=== PATIENT | male | born 1955 | race Caucasian/White ===

== ENCOUNTER 2019-05-16 17:13 | Emergency (ER) | payer MEDICARE, BC, OTHER ==
--- NOTE | 2019-05-16 17:30 | ERPHSYRPT ---
- History of Present Illness Time Seen by Provider: 05/16/19 17:19 - Departure Referrals: ARYAN CHAVARRIA MD [Primary Care Provider] -
[2019-05-16] MEDS ORDERED: BABY ASPIRIN 81 MG CHEW PO ONE (17:33)
[2019-05-16] MEDS ORDERED: NITRO-BID 2% UD PACKETS TOP ONE (17:33)
[2019-05-16 17:48] LABS: Absolute Neutrophil Ct (ANC) 7.74 (1.4-6.9); BASOPHIL % 0.5 % (0.0-0.4); Basophil (Absolute #) 0.05 (0-0.4); Eosinophil % 1.4 % (0.00-5.0); Eosinophil (Absolute #) 0.16 (0-0.5); Hematocrit 29.8 % (42-50); Lymphocyte (Absolute #) 1.49 (1.0-4.6); Lymphocytes % 13.5 % (24.0-44.0); Mean Cell Volume 77.6 fl (78-100); Mean Corpuscular Hgb Concent. 33.6 g/dl (32-36); Mean Platelet Volume 9.3 fl (6-9.5); Monocyte (Absolute #) 1.62 (0.0-1.3); Monocytes % 14.6 % (0.0-12.0); Platelet Count 376 K/mm3 (150-450); Red Blood Count 3.84 M/mm3 (4.1-5.6); Red Cell Distribution Width 15.6 % (11.5-14.0); White Blood Count 11.1 K/mm3 (4.0-10.5)
[2019-05-16] MEDS ORDERED: BABY ASPIRIN 81 MG CHEW ONE (18:22)
[2019-05-16] MEDS ORDERED: NITRO-BID 2% UD PACKETS ONE ×2 (18:22→18:27)
[2019-05-16 18:24] LABS: Glucose 146 mg/dL (74-106)
[2019-05-16 18:25] LABS: ALKALINE PHOSPHATASE 80 U/L (38-126); BLOOD UREA NITROGEN 9 mg/dL (9-20); CHLORIDE 83 mmol/L (98-107); CK-Creatinine Phosphokinase 35 U/L (55-170); Calcium 8.8 mg/dL (8.4-10.2); Carbon Dioxide 26 mmol/L (22-30); Creatinine 1 0.45 mg/dL (0.66-1.25); NT PRO BNP 1620 pg/mL (0-900); Potassium 4.8 mmol/L (3.5-5.1); SGOT/AST 31 U/L (17-59); SGPT/ALT 29 U/L (0-50); SODIUM 121 mmol/L (137-145); Total Protein 7.5 g/dL (6.3-8.2)
[2019-05-16 18:26] LABS: ANION GAP 1.1 MEQ/L (5-15)
--- NOTE | 2019-05-16 19:00 | ERPHSYRPT ---
- History of Present Illness Time Seen by Provider: 05/16/19 17:19 Historian: patient Exam Limitations: no limitations Patient Subjective Stated Complaint: pt here for sob for 3 days worse this morning Triage Nursing Assessment: pt to ED c/o SOB and CP intermittently x2 months. 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 laying flat makes SOB and CP wrose. pain radiates from substernal to L shoulder and to lower back. pt on room air. wheelchair to room, placed in gown and placed in bed. observed shallow breaths. lung sounds clear and equal bilat. heart sounds clear. cap refil < 2 sec. no clubbing noted. Physician History: patient c/o SOB, increasing weakness, increasing peripheral edema x 3 days, worse today - Also c/o left sided chest pain- 09/01, constant, no aggravating or relieving factors, radiating to left arm x 3 days - reports he has had an open heart surgery and a pacemaker in place - also reports he has been treated for a UTI 3 weeks ago and is undergoing rx for glaucoma - pt. sees physicians out of [facility] Timing/Duration: day(s) (3) Activities at Onset: none Quality: dullness Location: substernal Chest Pain Radiation: arm Severity of Pain-Max: mild Modifying Factors: Improves With: nothing Associated Symptoms: shortness of breath, weakness Prior Chest Pain/Cardiac Workup: cardiac cath, echocardiography, heart attack Nitro Today/Relief: 0.4 mg x 1, provided by ED, mild relief Aspirin Treatment Today: no aspirin today, 81 mg x 3, provided by ED Allergies/Adverse Reactions: No Known Drug Allergies Allergy (Unverified 05/16/19 18:30) - Review of Systems Constitutional: Weakness Eyes: No Symptoms Ears, Nose, & Throat: No Symptoms Respiratory: Dyspnea, Dyspnea on Exertion (MACARIO) Cardiac: Chest Pain, Edema, Orthopnea Abdominal/Gastrointestinal: No Symptoms Genitourinary Symptoms: No Symptoms Musculoskeletal: No Symptoms Skin: No Symptoms Neurological: No Symptoms, No Dizziness, No Focal Weakness, No Gait Changes Psychological: No Symptoms Endocrine: No Symptoms Hematologic/Lymphatic: No Symptoms Immunological/Allergic: No Symptoms All Other Systems: Reviewed and Negative - Past Medical History Pertinent Past Medical History: Yes Neurological History: No Pertinent History ENT History: No Pertinent History Cardiac History: Congestive Heart Failure, High Cholesterol, Hypertension Respiratory History: Asthma, CHF Endocrine Medical History: Diabetes Type II Musculoskeletal History: No Pertinent History GI Medical History: No Pertinent History History: No Pertinent History Psycho-Social History: Anxiety Male Reproductive Disorders: No Pertinent History - Past Surgical History Past Surgical History: Yes Neuro Surgical History: No Pertinent History Cardiac: Cardiac Stent, Pacemaker, Other Respiratory: No Pertinent History Gastrointestinal: No Pertinent History Genitourinary: No Pertinent History Musculoskeletal: No Pertinent History Male Surgical History: No Pertinent History - Social History Smoking Status: Former smoker Exposure to second hand smoke: No Drug Use: none Patient Lives Alone: No - Nursing Vital Signs Nursing Vital Signs: Initial Vital Signs Temperature 97.0 F 05/16/19 17:18 Pulse Rate 79 05/16/19 17:18 Respiratory Rate 22 05/16/19 17:18 Blood Pressure 142/77 05/16/19 17:18 O2 Sat by Pulse Oximetry 96 05/16/19 17:18 Pain Scale Pain Intensity 4 - Physical Exam General Appearance: mild distress Eye Exam: PERRL/EOMI Ears, Nose, Throat Exam: normal ENT inspection, TMs normal, pharynx normal Neck Exam: normal inspection, non-tender, supple, full range of motion Respiratory Exam: normal breath sounds, diminished breath sounds, crackles/rales Cardiovascular Exam: regular rate/rhythm, normal heart sounds, normal peripheral pulses, edema Gastrointestinal/Abdomen Exam: soft Rectal Exam: deferred Back Exam: normal inspection Extremity Exam: pedal edema Neurologic Exam: alert, oriented x 3, cooperative, normal mood/affect Skin Exam: normal color Lymphatic Exam: No adenopathy SpO2 Interpretation: normal SpO2: 97 O2 Delivery: Room Air - Course EKG Interpreted by Me: RATE, Sinus Rhythm, NORMAL AXIS, ST Elev (ST elevation in 111, avr, v1, ; st depression in 1 avl- pt. states he ahs EKG abnormalities for a few years now), Non-specific ST Changes Ordered Tests: Active Orders 24 hr Category Date Time Status Sorting And Folding Supervisor STAT Care 05/16/19 17:31 Active EKG-ER Only STAT Care 05/16/19 17:30 Active CHEST 1 VIEW (PORTABLE) Stat Exams 05/16/19 17:31 Taken CBC W DIFF Stat Lab 05/16/19 17:30 Completed CK-Creatinine Phosphokinase Stat Lab 05/16/19 17:56 Completed CMP Stat Lab 05/16/19 17:56 Completed NT PRO BNP Stat Lab 05/16/19 17:56 Completed TROPONIN Q3H Lab 05/16/19 17:56 Completed TROPONIN Q3H Lab 05/16/19 20:45 Ordered TROPONIN Q3H Lab 05/16/19 23:45 Ordered TROPONIN Q3H Lab 05/17/19 02:45 Ordered TROPONIN Q3H Lab 05/17/19 05:45 Ordered Medication Summary Generic Name Dose Route Start Last Admin Trade Name Freq PRN Reason Stop Dose Admin Furosemide 20 mg 05/17/19 10:00 05/16/19 19:06 Lasix 20 Mg/2 Ml IV 06/16/19 09:59 20 mg DAILY CLEOPATRA Administration Discontinued Medications Generic Name Dose Route Start Last Admin Trade Name Freq PRN Reason Stop Dose Admin Aspirin 324 mg 05/16/19 17:33 05/16/19 19:11 Baby Aspirin 81 Mg Chew PO 05/16/19 17:34 324 mg STAT ONE Administration Aspirin Confirm 05/16/19 18:22 Baby Aspirin 81 Mg Chew Administered 05/16/19 18:23 Dose 324 mg .ROUTE .STK-MED ONE Furosemide Confirm 05/16/19 19:03 Lasix 40 Mg/4 Ml Administered 05/16/19 19:04 Dose 40 mg .ROUTE .STK-MED ONE Nitroglycerin 1 gm 05/16/19 17:33 05/16/19 19:11 Nitro-Bid 2% Ud Packets TOP 05/16/19 17:34 1 gm STAT ONE Administration Nitroglycerin Confirm 05/16/19 18:22 Nitro-Bid 2% Ud Packets Administered 05/16/19 18:23 Dose 1 gm .ROUTE .STK-MED ONE Nitroglycerin Confirm 05/16/19 18:27 Nitro-Bid 2% Ud Packets Administered 05/16/19 18:28 Dose 1 gm .ROUTE .STK-MED ONE Lab/Rad Data: Laboratory Result Diagrams 05/16/19 17:30 05/16/19 17:56 Laboratory Results 05/16/19 05/16/19 05/16/19 Range/Units 17:56 17:56 17:30 WBC 11.1 H (4.0-10.5) K/mm3 RBC 3.84 L (4.1-5.6) M/mm3 Hgb 10.0 L (12.5-18.0) gm/dl Hct 29.8 L (42-50) % MCV 77.6 L (78-100) fl MCH 26.0 (26-32) pg MCHC 33.6 (32-36) g/dl RDW 15.6 H (11.5-14.0) % Plt Count 376 (150-450) K/mm3 MPV 9.3 (6-9.5) fl Gran % 70.0 H (36.0-66.0) % Eos # (Auto) 0.16 (0-0.5) Absolute Lymphs (auto) 1.49 (1.0-4.6) Absolute Monos (auto) 1.62 H (0.0-1.3) Lymphocytes % 13.5 L (24.0-44.0) % Monocytes % 14.6 H (0.0-12.0) % Eosinophils % 1.4 (0.00-5.0) % Basophils % 0.5 (0.0-0.4) % Absolute Granulocytes 7.74 H (1.4-6.9) Basophils # 0.05 (0-0.4) Sodium 121 L (137-145) mmol/L Potassium 4.8 (3.5-5.1) mmol/L Chloride 83 L (98-107) mmol/L Carbon Dioxide 26 (22-30) mmol/L Anion Gap 1.1 L (5-15) MEQ/L BUN 9 (9-20) mg/dL Creatinine 0.45 L (0.66-1.25) mg/dL Estimated GFR > 60.0 ML/MIN Glucose 146 H (74-106) mg/dL Calcium 8.8 (8.4-10.2) mg/dL Total Bilirubin 0.60 (0.2-1.3) mg/dL AST 31 (17-59) U/L ALT 29 (0-50) U/L Alkaline Phosphatase 80 (38-126) U/L Creatine Kinase 35 L (55-170) U/L Troponin I < 0.012 (0.000-0.034) ng/mL NT-Pro-B Natriuret Pep 1620 H (0-900) pg/mL Serum Total Protein 7.5 (6.3-8.2) g/dL Albumin 4.0 (3.5-5.0) g/dL - Progress Progress: unchanged Air Movement: fair Progress Note: 05/16/19 19:06 Patient seen and examined in Ed room 7 - VSS - pt. was given 324 mg aspirin, nitro apste and IV lasix - Labs showed mildly elevated WBC count of 11.1, chronic anemia with Hb 10.0- per pt - CMP- shows hyponatremia with Na 121- this s chronic per patient, BNP 1620 CXR - WNL - CPK- WNL The medications offered little relief of chest pain Discussed with who recommended transfer to [facility] given pt's complicated cardiac history My nurse has called [facility] for transfer 05/16/19 19:44 discussed with at [facility]- who acccepted transfer and confirmed chronic hyponatremia an chronic EKG changes pt. will be transferred in stable condition Blood Culture(s) Obtained: No Antibiotics given: No - Departure Departure Disposition: Transfer Clinical Impression: Acute exacerbation of CHF (congestive heart failure), Chronic hyponatremia, Chest pain Condition: Fair Critical Care Time: Yes Critical Care Time(excluding separately billable procedures): Critical 30-74 mins (30 min) Referrals: ARYAN CHAVARRIA MD [Primary Care Provider] - Instructions: Heart Failure
[2019-05-16] MEDS ORDERED: Lasix 40 MG/4 ML ONE (19:03)
--- NOTE | 2019-05-16 20:55 | XRAY ---
Indication: Chest pain. Comparison: None Portable chest demonstrates cardiomegaly with CABG surgery, left sided AICD, central vascular prominence, and tiny left effusion concerning for cardiac decompensation. Superimposed pneumonia not completely excluded. Bony thorax intact with mild degenerative changes.
[2019-05-16 21:39] VITALS: BP 143/65; PULSE 83; O2SAT 93
[2019-05-17 05:38] LABS: Slide Review 1 YES
[2019-05-17] MEDS ORDERED: Lasix 20 MG/2 ML IV SCH (10:00)
== END 2019-05-16 21:50 | disposition short-term general hospital (02) ==
LOC: ED 17:13
DX: I50.9 Heart failure, unspecified (principal); E87.1 Hypo-osmolality and hyponatremia; R07.89 Other chest pain; R06.02 Shortness of breath; E78.00 Pure hypercholesterolemia, unspecified; I10 Essential (primary) hypertension; E11.9 Type 2 diabetes mellitus without complications
CPT/HCPCS: 36415; 71045; 80053; 82550; 83880; 84484; 85025; 93005; 93041; 96374; 99285; 99291; J1940; A9270-GY

== ENCOUNTER 2022-04-02 22:28 | Emergency (ER) | payer OTHER, MEDICARE ==
[2022-04-02] MEDS ORDERED: Lasix 40 MG/4 ML IV ONE (22:44)
--- NOTE | 2022-04-02 22:44 | ERPHSYRPT ---
- History of Present Illness Time Seen by Provider: 04/02/22 22:41 Historian: patient, family Exam Limitations: no limitations Physician History: pt has had CP for 3 days - has care at [facility] and came in here. Chronic COPD and SOBreath also. PVD and will need bypass and also states chronic CHF. No Trauma. Timing/Duration: day(s) Activities at Onset: none Quality: fullness, pressure, tightness Location: central Severity of Pain-Max: moderate Severity of Pain-Current: moderate Associated Symptoms: denies symptoms Prior Chest Pain/Cardiac Workup: angina, recently seen/treated Nitro Today/Relief: no nitro taken today (pain resolved prior to nitro) Aspirin Treatment Today: 81 mg x 4, provided at home, provided by ED Allergies/Adverse Reactions: iodine Allergy (Verified 04/02/22 22:38) Home Medications: Aspirin [Aspirin EC] 81 mg PO DAILY 04/02/22 [History] Atorvastatin Calcium [Lipitor] 80 mg PO DAILY 04/02/22 [History] Empagliflozin [Jardiance] 25 mg PO DAILY 04/02/22 [History] Ferrous Sulfate 324 mg PO DAILY 04/02/22 [History] Fluoxetine HCl 10 mg [Prozac 10 mg] 10 mg PO DAILY 04/02/22 [History] Metformin HCl 500 mg [Glucophage 500 MG] 1,000 mg PO BID 04/02/22 [History] Metoprolol Succinate 25 mg PO DAILY 04/02/22 [History] Montelukast Sodium 10 mg [Singulair 10 MG] 10 mg PO DAILY 04/02/22 [History] Omeprazole 20 mg PO DAILY 04/02/22 [History] Potassium Citrate [Potassium Citrate ER] 20 meq PO DAILY 04/02/22 [History] Sacubitril/Valsartan [Entresto 24 mg-26 mg Tablet] 0.5 tab PO BID 04/02/22 [History] Spironolactone 25 mg [Aldactone 25 MG] 25 mg PO DAILY 04/02/22 [History] Tamsulosin HCl 0.4 mg [Flomax 0.4 MG] 0.4 mg PO DAILY 04/02/22 [History] Torsemide 20 mg [Demadex 20 mg] 20 mg PO BID 04/02/22 [History] - Review of Systems Constitutional: No Fever, No Chills Eyes: No Symptoms Ears, Nose, & Throat: No Symptoms Respiratory: No Cough, No Dyspnea Cardiac: Chest Pain, Edema, No Syncope Abdominal/Gastrointestinal: No Abdominal Pain, No Nausea, No Vomiting, No Diarrhea Genitourinary Symptoms: No Dysuria Musculoskeletal: No Back Pain, No Neck Pain Skin: No Rash Neurological: No Dizziness, No Focal Weakness, No Sensory Changes Psychological: No Symptoms Endocrine: No Symptoms Hematologic/Lymphatic: No Symptoms Immunological/Allergic: No Symptoms All Other Systems: Reviewed and Negative - Past Medical History Pertinent Past Medical History: Yes Neurological History: No Pertinent History ENT History: No Pertinent History Cardiac History: Congestive Heart Failure, High Cholesterol, Hypertension Respiratory History: Asthma, CHF Endocrine Medical History: Diabetes Type II Musculoskeletal History: No Pertinent History GI Medical History: No Pertinent History History: No Pertinent History Psycho-Social History: Anxiety Male Reproductive Disorders: No Pertinent History - Past Surgical History Past Surgical History: Yes Neuro Surgical History: No Pertinent History Cardiac: Cardiac Stent, Pacemaker, Other Respiratory: No Pertinent History Gastrointestinal: No Pertinent History Genitourinary: No Pertinent History Musculoskeletal: No Pertinent History Male Surgical History: No Pertinent History - Social History Smoking Status: Former smoker Exposure to second hand smoke: No Drug Use: none Patient Lives Alone: No - Nursing Vital Signs Nursing Vital Signs: Initial Vital Signs Temperature 97.2 F 04/02/22 22:38 Pulse Rate 84 04/02/22 22:38 Respiratory Rate 12 04/02/22 22:38 Blood Pressure 65/48 04/02/22 22:38 O2 Sat by Pulse Oximetry 99 04/02/22 22:38 Pain Scale Pain Intensity 0 - Physical Exam General Appearance: no apparent distress, alert Eye Exam: PERRL/EOMI, eyes nml inspection Ears, Nose, Throat Exam: normal ENT inspection, moist mucous membranes Neck Exam: normal inspection, non-tender, supple, full range of motion Respiratory Exam: normal breath sounds, lungs clear, No respiratory distress Cardiovascular Exam: regular rate/rhythm, normal heart sounds Gastrointestinal/Abdomen Exam: soft, No tenderness, No mass Rectal Exam: deferred Back Exam: normal inspection, No CVA tenderness, No vertebral tenderness Extremity Exam: normal inspection, normal range of motion Neurologic Exam: alert, oriented x 3, cooperative, normal mood/affect, sensation nml, No motor deficits Skin Exam: normal color, warm, dry SpO2 Interpretation: normal SpO2: 99 O2 Delivery: Room Air - Course Nursing assessment & vital signs reviewed: Yes EKG Interpreted by Me: Sinus Rhythm, Left Bundle Branch Block, Right Bundle Branch Block, Non-specific ST Changes - Radiology Exams Chest X-ray Interpretation: Reviewed by me, Other (cardiomeg, CHF, Interstitial infiltrates) - CT Exams Chest CT Interpretation: Tele-radiologist Report, No PE Ordered Tests: Active Orders 24 hr Category Date Time Status Supervisor Rolling Room STAT Care 04/02/22 22:45 Active EKG-ER Only STAT Care 04/02/22 22:44 Active IV Insertion STAT Care 04/02/22 22:44 Active Pulse Oximetry (ED) STAT Care 04/02/22 22:44 Active CHEST 1 VIEW (PORTABLE) Stat Exams 04/02/22 22:45 Taken CHEST WITH CONTRAST [CT] Stat Exams 04/02/22 23:37 Taken CBC W DIFF Stat Lab 04/02/22 23:07 Completed CMP Stat Lab 04/02/22 23:07 Completed D-DIMER QUANTITATIVE Stat Lab 04/02/22 23:07 Completed NT PRO BNP Stat Lab 04/02/22 23:07 Completed TROPONIN Q4H Lab 04/02/22 23:07 Completed TROPONIN Q4H Lab 04/03/22 03:04 Received TROPONIN Q4H Lab 04/03/22 06:45 Ordered UA W/RFX CULTURE Stat Lab 04/03/22 01:04 Completed Medication Summary Generic Name Dose Route Start Last Admin Trade Name Freq PRN Reason Stop Dose Admin Sodium Chloride 1,000 mls @ 50 mls/hr 04/02/22 22:45 04/02/22 23:28 Sodium Chloride 0.9% 1000 Ml IV 05/02/22 22:44 50 mls/hr .Q20H CLEOPATRA Administration Discontinued Medications Generic Name Dose Route Start Last Admin Trade Name Freq PRN Reason Stop Dose Admin Aspirin 243 mg 04/03/22 22:58 Aspirin 81 Mg Tab.Chew PO 04/03/22 22:59 STAT ONE Aspirin 243 mg 04/02/22 22:58 04/02/22 23:00 Aspirin 81 Mg Tab.Chew PO 04/02/22 22:59 243 mg STAT ONE Administration Furosemide 40 mg 04/02/22 22:44 04/02/22 23:00 Furosemide 40 Mg/4 Ml Vial IV 04/02/22 22:45 40 mg STAT ONE Administration Furosemide Confirm 04/02/22 22:57 Furosemide 40 Mg/4 Ml Vial Administered 04/02/22 22:58 Dose 40 mg .ROUTE .STK-MED ONE Sodium Chloride 250 mls @ 500 mls/hr 04/02/22 22:48 04/02/22 23:29 Sodium Chloride 0.9% 500 Ml IV 04/02/22 23:17 Infused .Q30M ONE Infusion Sodium Chloride Confirm 04/02/22 22:49 Sodium Chloride 0.9% 500 Ml Administered 04/02/22 22:50 Dose 500 mls @ ud IV .STK-MED ONE Nitroglycerin 1 gm 04/03/22 00:21 Nitroglycerin 1 Gm Packet TOP 04/03/22 00:22 STAT ONE Lab/Rad Data: Laboratory Result Diagrams 04/02/22 23:07 04/02/22 23:07 Laboratory Results 04/03/22 04/02/22 04/02/22 Range/Units 01:04 23:07 23:07 WBC (4.0-10.5) x10^3/uL RBC (4.1-5.6) x10^6/uL Hgb (12.5-18.0) g/dL Hct (42-50) % MCV (78-100) fL MCH (26-32) pg MCHC (32-36) g/dL RDW (11.5-14.0) % Plt Count (150-450) x10^3/uL MPV (7.5-11.0) fL Gran % (36.0-66.0) % Immature Gran % (Auto) (0.00-0.4) % Nucleat RBC Rel Count (0.00-0.1) % Eos # (Auto) (0-0.5) x10^3/uL Immature Gran # (Auto) (0.00-0.03) x10^3u/L Absolute Lymphs (auto) (1.0-4.6) x10^3/uL Absolute Monos (auto) (0.0-1.3) x10^3/uL Absolute Nucleated RBC (0.00-0.01) x10^3u/L Lymphocytes % (24.0-44.0) % Monocytes % (0.0-12.0) % Eosinophils % (0.00-5.0) % Basophils % (0.0-0.4) % Absolute Granulocytes (1.4-6.9) x10^3/uL Basophils # (0-0.4) x10^3/uL D-Dimer 1.35 H* (0.0-0.50) mg/L Sodium (137-145) mmol/L Potassium (3.5-5.1) mmol/L Chloride (98-107) mmol/L Carbon Dioxide (22-30) mmol/L Anion Gap (5-15) MEQ/L BUN (9-20) mg/dL Creatinine (0.66-1.25) mg/dL Estimated GFR ML/MIN Glucose (74-106) mg/dL Calcium (8.4-10.2) mg/dL Total Bilirubin (0.2-1.3) mg/dL AST (17-59) U/L ALT (0-50) U/L Alkaline Phosphatase (38-126) U/L Troponin I 0.021 (0.000-0.034) ng/mL NT-Pro-B Natriuret Pep (0-900) pg/mL Serum Total Protein (6.3-8.2) g/dL Albumin (3.5-5.0) g/dL Urinalys Dipstick Clnc MAIN LAB Urine Color YELLOW (YELLOW) Urine Appearance CLEAR (CLEAR) Urine pH 5.5 (5-6) Ur Specific [place] 1.010 (1.005-1.025) POC Urine Protein Conf NEGATIVE (Negative) Urine Ketones NEGATIVE (NEGATIVE) Urine Nitrite NEGATIVE (NEGATIVE) Urine Bilirubin NEGATIVE (NEGATIVE) Urine Urobilinogen 0.2 (0-1) mg/dL Urine Leukocytes NEGATIVE (NEGATIVE) Urine WBC (Auto) NONE (0-5) /HPF Urine RBC (Auto) NONE (0-2) /HPF U Epithel Cells (Auto) NONE (FEW) /HPF Urine Bacteria (Auto) NONE (NEGATIVE) /HPF Urine RBC NEGATIVE (0-5) Tho/ul Other Casts (Auto) NEGATIVE (NEGATIVE) /LPF Ur Culture Indicated? NO Urine Glucose 250 (NEGATIVE) mg/dL Slides for Path Review 04/02/22 04/02/22 Range/Units 23:07 23:07 WBC 11.0 H (4.0-10.5) x10^3/uL RBC 4.67 (4.1-5.6) x10^6/uL Hgb 11.2 L (12.5-18.0) g/dL Hct 37.2 L (42-50) % MCV 79.7 (78-100) fL MCH 24.0 L (26-32) pg MCHC 30.1 L (32-36) g/dL RDW 31.2 H (11.5-14.0) % Plt Count 299 (150-450) x10^3/uL MPV 10.3 (7.5-11.0) fL Gran % 80.4 H (36.0-66.0) % Immature Gran % (Auto) 0.2 (0.00-0.4) % Nucleat RBC Rel Count 0.0 (0.00-0.1) % Eos # (Auto) 0.08 (0-0.5) x10^3/uL Immature Gran # (Auto) 0.02 (0.00-0.03) x10^3u/L Absolute Lymphs (auto) 0.85 L (1.0-4.6) x10^3/uL Absolute Monos (auto) 1.14 (0.0-1.3) x10^3/uL Absolute Nucleated RBC 0.00 (0.00-0.01) x10^3u/L Lymphocytes % 7.7 L (24.0-44.0) % Monocytes % 10.3 (0.0-12.0) % Eosinophils % 0.7 (0.00-5.0) % Basophils % 0.7 (0.0-0.4) % Absolute Granulocytes 8.85 H (1.4-6.9) x10^3/uL Basophils # 0.08 (0-0.4) x10^3/uL D-Dimer (0.0-0.50) mg/L Sodium 141 (137-145) mmol/L Potassium 4.2 (3.5-5.1) mmol/L Chloride 105 (98-107) mmol/L Carbon Dioxide 28 (22-30) mmol/L Anion Gap 12.8 (5-15) MEQ/L BUN 9 (9-20) mg/dL Creatinine 0.66 (0.66-1.25) mg/dL Estimated GFR > 60.0 ML/MIN Glucose 110 H (74-106) mg/dL Calcium 9.6 (8.4-10.2) mg/dL Total Bilirubin 0.40 (0.2-1.3) mg/dL AST 22 (17-59) U/L ALT 16 (0-50) U/L Alkaline Phosphatase 114 (38-126) U/L Troponin I (0.000-0.034) ng/mL NT-Pro-B Natriuret Pep 33.4 (0-900) pg/mL Serum Total Protein 7.6 (6.3-8.2) g/dL Albumin 5.1 H (3.5-5.0) g/dL Urinalys Dipstick Clnc Urine Color (YELLOW) Urine Appearance (CLEAR) Urine pH (5-6) Ur Specific [place] (1.005-1.025) POC Urine Protein Conf (Negative) Urine Ketones (NEGATIVE) Urine Nitrite (NEGATIVE) Urine Bilirubin (NEGATIVE) Urine Urobilinogen (0-1) mg/dL Urine Leukocytes (NEGATIVE) Urine WBC (Auto) (0-5) /HPF Urine RBC (Auto) (0-2) /HPF U Epithel Cells (Auto) (FEW) /HPF Urine Bacteria (Auto) (NEGATIVE) /HPF Urine RBC (0-5) Tho/ul Other Casts (Auto) (NEGATIVE) /LPF Ur Culture Indicated? Urine Glucose (NEGATIVE) mg/dL Slides for Path Review YES - Progress Progress: improved, re-examined Air Movement: good Progress Note: 04/03/22 01:36 pt had low bp of 65 but staqted that he runs in the 70s. we gave a bolus of 250 cc NS and it came up into the 90s. No CP now. 04/03/22 03:52 DIscussed with transfer center cardio Dr. Panchito march and [facility] accepted in transfer and pt also agrees this is best. THe transfer will be ER to ER - to Dr. Bunch. Blood Culture(s) Obtained: No Antibiotics given: No Discussed with Dr.: Other ([facility] Cardio) Will see patient in: ED Counseled pt/family regarding: lab results, diagnosis, need for follow-up, rad results - Departure Departure Disposition: Transfer Clinical Impression: Chest pain, Elevated troponin Condition: Good Critical Care Time: Yes Critical Care Time(excluding separately billable procedures): Critical 30-74 min s (given NS bolus to keep BP up into 90s) Referrals: ARYAN CHAVARRIA MD [Primary Care Provider] - Follow up/PCP as directed
[2022-04-02] MEDS ORDERED: Sodium Chloride 0.9% 1000 ML 1,000 ML IV SCH (22:45)
[2022-04-02] MEDS ORDERED: Sodium Chloride 0.9% 500 ML 500 ML IV ONE (22:49)
[2022-04-02] MEDS ORDERED: Lasix 40 MG/4 ML ONE (22:57)
[2022-04-02] MEDS ORDERED: BABY ASPIRIN 81 MG CHEW PO ONE (22:58)
[2022-04-02 23:11] LABS: Absolute Neutrophil Ct (ANC) 8.85 x10^3/uL (1.4-6.9); Basophil (Absolute #) 0.08 x10^3/uL (0-0.4); Eosinophil % 0.7 % (0.00-5.0); Eosinophil (Absolute #) 0.08 x10^3/uL (0-0.5); Hematocrit 37.2 % (42-50); Hemoglobin 11.2 g/dL (12.5-18.0); Lymphocyte (Absolute #) 0.85 x10^3/uL (1.0-4.6); Lymphocytes % 7.7 % (24.0-44.0); Mean Cell Volume 79.7 fL (78-100); Mean Corpuscular Hgb Concent. 30.1 g/dL (32-36); Mean Platelet Volume 10.3 fL (7.5-11.0); Monocyte (Absolute #) 1.14 x10^3/uL (0.0-1.3); Monocytes % 10.3 % (0.0-12.0); Neutrophil % 80.4 % (36.0-66.0); Platelet Count 299 x10^3/uL (150-450); Red Blood Count 4.67 x10^6/uL (4.1-5.6); Red Cell Distribution Width 31.2 % (11.5-14.0)
[2022-04-02] MEDS ORDERED: Sodium Chloride 0.9% 1000 ML 1,000 ML ONE (23:28)
[2022-04-02 23:32] LABS: ALBUMIN 5.1 g/dL (3.5-5.0); ALKALINE PHOSPHATASE 114 U/L (38-126); ANION GAP 12.8 MEQ/L (5-15); BLOOD UREA NITROGEN 9 mg/dL (9-20); CHLORIDE 105 mmol/L (98-107); Calcium 9.6 mg/dL (8.4-10.2); Carbon Dioxide 28 mmol/L (22-30); Creatinine 1 0.66 mg/dL (0.66-1.25); EST GLOMERULAR FILTRATION RATE > 60.0 ML/MIN; Glucose 110 mg/dL (74-106); NT PRO BNP 33.4 pg/mL (0-900); Potassium 4.2 mmol/L (3.5-5.1); SGOT/AST 22 U/L (17-59); SGPT/ALT 16 U/L (0-50); SODIUM 141 mmol/L (137-145); Total Protein 7.6 g/dL (6.3-8.2)
[2022-04-02 23:50] LABS: Slide Review 1 YES
[2022-04-03] MEDS ORDERED: NITRO-BID 2% UD PACKETS TOP ONE (00:21)
[2022-04-03 01:15] LABS: Appearance CLEAR (CLEAR); Bilirubin NEGATIVE (NEGATIVE); Glucose 250 mg/dL (NEGATIVE); Ketones NEGATIVE (NEGATIVE)
[2022-04-03 01:16] LABS: Dipstick done @ ? MAIN LAB; Nitrite NEGATIVE (NEGATIVE); Ph 5.5 (5-6); Protein,Urine Dip NEGATIVE (Negative); RBC NEGATIVE Ery/ul (0-5); Urine Cultured Indicated? NO; Urobilinogen 0.2 mg/dL (0-1)
[2022-04-03 03:22] VITALS: O2SAT 99
[2022-04-03 04:04] VITALS: PULSE 71
[2022-04-03 05:07] VITALS: BP 92/68
--- NOTE | 2022-04-03 09:24 | XRAY ---
Indication: Chest pain and short of breath. Elevated d-dimer. Multiple contiguous axial images obtained through the chest using 100 cc Isovue 370 contrast and PE protocol. Comparison: None Good opacification of the pulmonary arteries to include the lobar and segmental branches. No pulmonary embolus. Heart is enlarged with CABG and left AICD. Aorta is moderately arteriosclerotic without aneurysm/dissection. No pathologic mediastinal/hilar lymphadenopathy. Lungs demonstrates diffuse pulmonary emphysema and peripheral fibrosis/scarring greatest in both lower lobes. Also tiny bilateral effusions. Bony thorax intact with osteopenia and moderate degenerative changes throughout the spine and sternotomy wires. Limited upper abdomen demonstrates tiny anterior perihepatic fluid. Also left epigastric ventral hernia with with ventral defect at least 7.4 cm in diameter and partial herniated stomach. Impression: 1. Negative pulmonary embolus. 2. Cardiomegaly with tiny bilateral effusions. Rule out cardiac decompensation/CHF. Tiny perihepatic fluid may be related. 3. Chronic findings including pulmonary emphysema, pulmonary fibrosis/scarring, epigastric ventral hernia with partial herniated stomach, and chronic bony findings. Comment: Preliminary interpretation made by [facility] does not report incidental perihepatic fluid and large ventral hernia.
--- NOTE | 2022-04-03 09:26 | XRAY ---
Indication: Chest pain. Comparison: May 16, 2019 Portable chest again demonstrates cardiomegaly with CABG and tiny left effusion concerning for mild or early cardiac decompensation/CHF. Remaining lungs clear. Bony thorax intact again with osteopenia, degenerative changes, and left AICD.
[2022-04-03] MEDS ORDERED: BABY ASPIRIN 81 MG CHEW PO ONE (22:58)
== END 2022-04-03 05:22 | disposition short-term general hospital (02) ==
LOC: ED 22:28
DX: R07.9 Chest pain, unspecified (principal); R77.8 Other specified abnormalities of plasma proteins; J44.9 Chronic obstructive pulmonary disease, unspecified; E78.5 Hyperlipidemia, unspecified; I11.0 Hypertensive heart disease with heart failure; E11.9 Type 2 diabetes mellitus without complications; Z79.84 Long term (current) use of oral hypoglycemic drugs; Z79.899 Other long term (current) drug therapy
CPT/HCPCS: 36000; 36415; 71045; 71260; 80053; 81015; 83880; 84484; 85025; 85379; 93005; 93041; 94760; 96374; 99285; 99291; J1940; A9270-GY